=== PATIENT | female | born 1980 | race Caucasian/White ===

== ENCOUNTER → 2024-06-09 08:31 | Outpatient (REF) | payer OTHER, SELFPAY | LOC: RAD 08:31 | PROVIDERS: ATTENDING PHYSICIAN Physician Assistant Medical | DX: Z71.3 Dietary counseling and surveillance (principal) | CPT/HCPCS: 76705 ==

== ENCOUNTER → 2024-08-13 09:04 | Outpatient (REF) | payer OTHER, SELFPAY | LOC: WDC 09:04 | PROVIDERS: ATTENDING PHYSICIAN Physician Assistant Medical | DX: L30.9 Dermatitis, unspecified (principal); N63.22 Unspecified lump in the left breast, upper inner quadrant | CPT/HCPCS: 76642; 77062; 77066 ==

== ENCOUNTER → 2025-01-06 09:38 | Outpatient (REF) | payer OTHER, SELFPAY | LOC: HWRAD 09:38 | PROVIDERS: ATTENDING PHYSICIAN Physician Assistant Medical | DX: Z71.3 Dietary counseling and surveillance (principal) | CPT/HCPCS: 76700 ==